=== PATIENT | male | born 1955 | race Caucasian/White ===

== ENCOUNTER 2016-10-24 12:08 | Emergency (ER) | payer OTHER ==
[~2016-10-24] VITALS: Ht 177.8 cm; Wt 115.0 kg
[~2016-10-24 12:08] MED LIST: AMARYL2 MG PO; ASPIRIN325 MG PO; Ceftin PO; GLUCOPHAGE500 MG PO; LISINOPRIL40 MG PO; NOHOMEMEDS; Omnicef PO; SIMVASTATIN20 MG PO; TYLENOL REGULA325 MG PO; Tamiflu PO; ZITHROMAX250 MG PO
[2016-10-24 12:55] LABS: EOSINOPHIL (%) 5.1 % (0-5); EOSINOPHIL COUNT 0.3 K/uL (0-0.3); HEMATOCRIT 33.1 % (38.0-50.0); IMMATURE GRANULOCYTE (%) 0.5 % (0.0-0.7); IMMATURE GRANULOCYTE COUNT 0.3 K/uL; LYMPHOCYTE COUNT 1.5 K/uL (1.0-2.8); MCH 25.6 PG (29.0-34.0); MCHC 32.3 G/DL (30.0-36.0); MCV 79.2 FL (86-99); MEAN PLAT.VOLUME 9.1 uM^3 (9.0-12.4); MONOCYTE (%) 8.1 % (3-12); MONOCYTE COUNT 0.5 K/uL (0-0.8); NEUTROPHIL (%) 62.5 % (45-76); NEUTROPHIL COUNT 4.1 K/uL (1.8-6.4); PLATELET COUNT 198 K/uL (156-360); RBC DIS.WIDTH-CV 14.4 % (11.8-14.6); RBC DIS.WIDTH-SD 39.6 % (39-53); RED BLOOD COUNT 4.18 M/uL (4.00-5.50); WHITE BLOOD COUNT 6.5 K/uL (4.1-10.2)
[2016-10-24 13:03] LABS: CHLORIDE 107 mEq/L (99-109); POTASSIUM 3.8 mEq/L (3.7-5.4); SODIUM 142 mEq/L (136-147)
[2016-10-24 13:04] LABS: GLUCOSE 212 mg/dL (70-99)
[2016-10-24 13:05] LABS: PROTHROMBIN TIME 10.6 (9.2-11.2)
[2016-10-24 13:06] LABS: ANION GAP 12 MEQ/L (2-14)
[2016-10-24 13:08] LABS: GFR ESTIMATE (CALCULATED) > 59 mL/min/
[2016-10-24 13:09] LABS: UREA NITROGEN (BUN) 24 mg/dL (9-23)
[2016-10-24] MEDS ORDERED: ATORVASTATIN CA40 MG PO (14:44)
[2016-10-24] MEDS ORDERED: ASPIR 8181 M1 PO (14:45)
[2016-10-24] MEDS ORDERED: LOPRESSOR25 MG PO (14:46)
[2016-10-24 16:03] VITALS: BP 173/92
== END 2016-10-24 16:03 | disposition home or self-care (01) ==
LOC: EME 12:08
PROVIDERS: Emergency Medicine
DX: M79.89 Other specified soft tissue disorders (principal); M79.604 Pain in right leg; I10 Essential (primary) hypertension; E11.9 Type 2 diabetes mellitus without complications; E78.5 Hyperlipidemia, unspecified; Z95.1 Presence of aortocoronary bypass graft; Z79.84 Long term (current) use of oral hypoglycemic drugs; Z79.82 Long term (current) use of aspirin
CPT/HCPCS: 80048; 85025; 85610; 93970; 99281; 99284